=== PATIENT | male | born 1970 | race Caucasian/White ===

== ENCOUNTER 2024-11-04 23:47 | Emergency (ER) | payer OTHER ==
[~2024-11-04] VITALS: Ht 182.8 cm; Wt 86.2 kg
== END 2024-11-05 01:18 | disposition home or self-care (01) ==
LOC: ED 23:47
DX: S80.02XA Contusion of left knee, initial encounter (principal); S60.221A Contusion of right hand, initial encounter; V29.39XA Other motorcycle (driver) (passenger) injured in unspecified nontraffic accident, initial encounter; Y93.89 Activity, other specified; Y92.488 Other paved roadways as the place of occurrence of the external cause; Y99.8 Other external cause status